=== PATIENT | male | born 1995 ===

== ENCOUNTER 2020-10-06 08:34 | Emergency (ER) | payer SELFPAY ==
[~2020-10-06] VITALS: Ht 170.2 cm; Wt 71.2 kg
[2020-10-06 09:07] LABS: Source, Urine Clean Catch
[2020-10-06 09:24] LABS: Appearance, Urine Clear (Clear); Bilirubin, Urine Neg (Neg); Blood, Urine Neg (Neg); Color, Urine Yellow (P-Yellow); Glucose Qualitative, Urine Neg (Neg); Ketones, Urine Neg (Neg); Leukocyte Esterase, Urine Neg (Neg); Nitrite, Urine Neg (Neg); Protein, Urine Neg (Neg); Urobilinogen, Urine NORM (Normal)
[2020-10-06] MEDS ORDERED: HYDR1TAB94 PO (09:38)
== END 2020-10-06 12:10 | disposition home or self-care (01) ==
LOC: ER 08:34
PROVIDERS: Emergency Medicine
DX: S20.211A Contusion of right front wall of thorax, initial encounter (principal); W01.198A Fall on same level from slipping, tripping and stumbling with subsequent striking against other object, initial encounter
CPT/HCPCS: 71046; 81003; 99283-25; A9270